=== PATIENT | male | born 1970 | race Caucasian/White ===

== ENCOUNTER 2017-10-04 07:37 | Emergency (ER) | payer OTHER, SELFPAY ==
[2017-10-04 07:40] VITALS: BMI 23.0
--- NOTE | 2017-10-04 08:20 | C.PDOC ---
History Of Present Illness 47 y/o male presents to ED for evaluation of urinary frequency for the past 2 months. Pt reports being seen at [facility] clinic 2 weeks ago for similar symptoms, had multiple negative work up including PSA and bladder and kidney ultrasound, and was referred to urologist. Pt was given prescription of Flomax. Otherwise, denies any abdominal pain, back pain, or fever. Time Seen by Provider: 10/04/17 07:41 Chief Complaint (Nursing): Male Genitourinary History Per: Patient History/Exam Limitations: no limitations Onset/Duration Of Symptoms: Days Current Symptoms Are (Timing): Still Present Severity: None Pain Scale Rating Of: 0 Associated Symptoms: Urinary Symptoms Alleviating Factors: None Recent travel outside of the [place]: No Additional History Per: Patient Past Medical History Reviewed: Historical Data, Nursing Documentation, Vital Signs Vital Signs: Last Vital Signs Temp 98.3 F 10/04/17 07:44 Pulse 68 10/04/17 07:44 Resp 20 10/04/17 07:44 BP 126/74 10/04/17 07:44 Pulse Ox 99 10/04/17 08:22 Surgical History: Tonsillectomy Family History: States: Unknown Family Hx - Social History Hx Alcohol Use: No Hx Substance Use: No - Immunization History Hx Tetanus Toxoid Vaccination: No Hx Influenza Vaccination: No Hx Pneumococcal Vaccination: No Review Of Systems Except As Marked, All Systems Reviewed And Found Negative. Constitutional: Negative for: Fever, Chills Gastrointestinal: Negative for: Nausea, Vomiting, Abdominal Pain, Diarrhea Genitourinary: Positive for: Frequency. Negative for: Dysuria, Hematuria, Penile Discharge, Scrotal Pain Musculoskeletal: Negative for: Back Pain Physical Exam - Physical Exam Appears: Non-toxic, No Acute Distress Skin: Normal Color, Warm, Dry Head: Atraumatic, Normacephalic Eye(s): bilateral: Normal Inspection Oral Mucosa: Moist Chest: Symmetrical Cardiovascular: Rhythm Regular, No Murmur Respiratory: Normal Breath Sounds, No Rales, No Rhonchi, No Wheezing Gastrointestinal/Abdominal: Normal Exam, Soft, No Tenderness Extremity: Normal ROM Neurological/Psych: Oriented x3, Normal Speech ED Course And Treatment - Laboratory Results Result Diagrams: 10/04/17 08:34 10/04/17 08:34 O2 Sat by Pulse Oximetry: 99 Pulse Ox Interpretation: Normal Progress Note: Blood work, UA ordered and reviewed. Disposition Counseled Patient/Family Regarding: Studies Performed, Diagnosis, Need For Followup - Disposition Referrals: Umang Parker MD [Staff Provider] - Disposition: HOME/ ROUTINE Disposition Time: 09:30 Condition: STABLE Additional Instructions: Follow up with clinic and urology for further evaluation Instructions: Dysuria (ED) Forms: [employer] (Bengali) - POA Present On Arrival: None - Clinical Impression Clinical Impression: Frequency of urination - PA / UNDERWRITING SPECIALIST / Resident Statement MD/DO has reviewed & agrees with the documentation as recorded. - Scribe Statement The provider has reviewed the documentation as recorded by the Scribe Haylee Gaytan All medical record entries made by the Kanchanibduke were at my direction and personally dictated by me. I have reviewed the chart and agree that the record accurately reflects my personal performance of the history, physical exam, medical decision making, and the department course for this patient. I have also personally directed, reviewed, and agree with the discharge instructions and disposition.
[2017-10-04 08:41] LABS: BASO % 0.4 % (0.0-2.0); EOS # 0.3 K/uL (0.0-0.7); EOS % 9.6 % (0.0-4.0); HEMATOCRIT 42.8 % (35.0-51.0); LYMPH # 1.3 K/uL (1.0-4.3); LYMPH % 38.8 % (20.0-40.0); MEAN CELL VOLUME 94.9 fL (80.0-94.0); MEAN CORPUSCULAR HEMOGLOBIN 32.2 pg (27.0-31.0); MEAN PLATELET VOLUME 8.7 fL (7.2-11.7); MONO # 0.4 K/uL (0.0-0.8); MONO % 10.6 % (0.0-10.0); RED CELL DISTRIBUTION WIDTH 12.1 % (11.5-14.5); WHITE BLOOD COUNT 3.3 K/uL (4.8-10.8)
[2017-10-04 08:49] LABS: URINE BILIRUBIN NEGATIVE (NEGATIVE); URINE BLOOD 1+ (NEGATIVE); URINE COLOR Yellow (YELLOW); URINE GLUCOSE (UA) NORMAL (Normal); URINE KETONE NEGATIVE (NEGATIVE); URINE LEUKOCYTE ESTERASE NEG Leu/uL (Negative); URINE PROTEIN NEGATIVE (NEGATIVE); URINE UROBILINOGEN NORMAL mg/dL (0.2-1.0)
[2017-10-04 08:53] LABS: ALKALINE PHOSPHATASE 73 U/L (38-126); ALT/SGPT 53 U/L (21-72); AST/SGOT 38 U/L (17-59); BILIRUBIN,TOTAL 0.9 mg/dL (0.2-1.3); BLOOD UREA NITROGEN 18 mg/dL (9-20); CALCIUM 8.8 mg/dl (8.6-10.4); CARBON DIOXIDE 33 mmol/L (22-30); CHLORIDE 101 mmol/L (98-107); GFR AFRICAN-AMERICAN > 60; GLUCOSE,RANDOM 89 mg/dL (75-110); POTASSIUM 4.3 mmol/L (3.6-5.2); SODIUM 137 mmol/L (132-148); TOTAL PROTEIN 8.4 g/dL (6.3-8.3)
[2017-10-04 09:21] LABS: RBC URINE 3 /hpf (0-3); WBC URINE 1 /hpf (0-5)
[2017-10-04 09:31] VITALS: BP 122/68; PULSE 72; RESP 18; TEMP 98.5; O2SAT 100
== END 2017-10-04 09:40 | disposition home or self-care (01) ==
LOC: C.ER 07:37
DX: R35.0 Frequency of micturition (principal)

== ENCOUNTER 2018-11-28 09:52 | Outpatient (CLI) | payer OTHER | END 2018-11-28 09:53 | disposition home or self-care (01) | LOC: C.LAB 09:52 | DX: D72.819 Decreased white blood cell count, unspecified (principal); R73.01 Impaired fasting glucose ==

== ENCOUNTER 2018-12-11 16:54 | Emergency (ER) | payer OTHER ==
[2018-12-11 16:54] VITALS: BMI 22.7
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
--- NOTE | 2018-12-11 18:02 | CT ---
Date of service: 12/11/2018 PROCEDURE: CT HEAD WITHOUT CONTRAST. HISTORY: headache COMPARISON: Noncontrast head CT performed 08/01/16 TECHNIQUE: Axial computed tomography images were obtained through the head/brain without intravenous contrast. Radiation dose: Total exam DLP = 1018.02 mGy-cm. This CT exam was performed using one or more of the following dose reduction techniques: Automated exposure control, adjustment of the mA and/or kV according to patient size, and/or use of iterative reconstruction technique. FINDINGS: Streak artifact limits evaluation of the skull base. HEMORRHAGE: No intracranial hemorrhage. BRAIN: No mass effect or edema. Xavier-white matter differentiation appears intact.Please note that MRI with diffusion imaging is more sensitive in the detection of acute ischemic event. VENTRICLES: No hydrocephalus. CALVARIUM: Unremarkable. PARANASAL SINUSES: Unremarkable as visualized. No significant inflammatory changes. MASTOID AIR CELLS: Unremarkable as visualized. No inflammatory changes. OTHER FINDINGS: None. IMPRESSION: No acute intracranial pathology identified.
[2018-12-11 21:46] VITALS: BP 111/63; PULSE 73; RESP 18; TEMP 98.3
[2018-12-12 01:03] VITALS: O2SAT 99
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
== END 2018-12-11 21:57 | disposition home or self-care (01) ==
LOC: C.ER 16:54
DX: S09.90XA Unspecified injury of head, initial encounter (principal); S16.1XXA Strain of muscle, fascia and tendon at neck level, initial encounter; V89.2XXA Person injured in unspecified motor-vehicle accident, traffic, initial encounter; M54.2 Cervicalgia; M54.6 Pain in thoracic spine

== ENCOUNTER 2018-12-15 17:07 | Emergency (ER) | payer OTHER ==
[2018-12-15 17:08] VITALS: BMI 22.7
[2018-12-15 17:43] VITALS: O2SAT 100
[2018-12-15] MEDS ORDERED: Sodium Chloride 0.9% 1,000 ML IV ONE (18:41)
[2018-12-15] MEDS ORDERED: Sodium Chloride 0.9% 1,000 ML ONE (19:00)
[2018-12-15 19:08] LABS: BASO % 0.6 % (0.0-2.0); EOS # 0.3 K/uL (0.0-0.7); EOS % 6.3 % (0.0-4.0); HEMOGLOBIN 14.9 g/dL (12.0-18.0); LYMPH # 1.6 K/uL (1.0-4.3); LYMPH % 30.5 % (20.0-40.0); MEAN CELL VOLUME 96.8 fL (80.0-94.0); MEAN PLATELET VOLUME 8.4 fL (7.2-11.7); MONO # 0.4 K/uL (0.0-0.8); MONO % 7.3 % (0.0-10.0); NEUT # 2.9 K/uL (1.8-7.0); NEUT % 55.3 % (50.0-75.0); NRBC % 0.1 % (0.0-2.0); RBC 4.67 Mil/uL (4.40-5.90); RED CELL DISTRIBUTION WIDTH 12.4 % (11.5-14.5); WHITE BLOOD COUNT 5.2 K/uL (4.8-10.8)
[2018-12-15 19:22] LABS: ALB/GLOB RATIO 1.4 (1.0-2.1); ALBUMIN 4.2 g/dL (3.5-5.0); ALT/SGPT 32 U/L (21-72); AST/SGOT 39 U/L (17-59); BLOOD UREA NITROGEN 17 mg/dL (9-20); CALCIUM 9.1 mg/dl (8.6-10.4); GFR NON-AFRICAN AMERICAN > 60
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
[2018-12-15 21:25] VITALS: BP 106/59; PULSE 75; RESP 20; TEMP 97.4
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
== END 2018-12-15 21:43 | disposition home or self-care (01) ==
LOC: C.ER 17:07
DX: S06.0X0D Concussion without loss of consciousness, subsequent encounter (principal); X58.XXXD Exposure to other specified factors, subsequent encounter; R42 Dizziness and giddiness
CPT/HCPCS: 70450; 71046; 80053; 85025; 96374; 99285; J2405; J7030